=== PATIENT | female | born 1995 | race Caucasian/White ===

== ENCOUNTER 2019-09-22 17:48 | Emergency (ER) | payer MEDICAID ==
[~2019-09-22] VITALS: Ht 167.6 cm; Wt 70.0 kg
[2019-09-22 17:56] VITALS: BP 101/62
[2019-09-22] MEDS ORDERED: ACETAMINOPHEN 325MG TABLET PO STA (18:35)
[2019-09-22 19:04] LABS: CLARITY URINE TURBID (CLEAR); COLOR URINE YELLOW (YELLOW); KETONES URINE NEGATIVE (NEGATIVE); LEUKOCYTE ESTERASE URINE 1+ (NEGATIVE); NITRITE URINE NEGATIVE (NEGATIVE); OCCULT BLOOD URINE 3+ (NEGATIVE); PH URINE 5.5 (4.5-8.0); PROTEIN URINE NEGATIVE (NEGATIVE); SPECIFIC GRAVITY URINE 1.023 (1.005-1.030)
== END 2019-09-22 22:09 | disposition left against medical advice (07) ==
LOC: ER 17:48
DX: R51 Headache (principal); R53.83 Other fatigue
CPT/HCPCS: 81003; 81025; 99283